=== PATIENT | male | born 1975 | race Caucasian/White ===

== ENCOUNTER 2017-07-10 19:25 | Emergency (ER) | payer SELFPAY ==
[~2017-07-10] VITALS: Ht 175.3 cm; Wt 68.2 kg
[2017-07-10 19:33] VITALS: TEMP 98.9
[2017-07-10 20:18] LABS: BASO # 0.1 (0.0-0.2); BASO % 0.7 % (0.0-2.0); EOS # 0.1 (0.0-0.7); EOS % 1.2 % (0-4.0); GRAN # 5.3 (1.4-6.5); GRAN % 59.5 % (42.2-75.2); HEMATOCRIT 44.8 % (42.0-52.0); HEMOGLOBIN 15.4 g/dl (13.5-18.0); LYMPH # 2.5 (1.2-3.4); LYMPH % 28.5 % (20.0-51.0); MEAN CELL VOLUME 91 fl (80.0-100.0); MEAN CORPUSCULAR HEMOGLOBIN 31 pg (27.0-31.0); MEAN CORPUSCULAR HGB CONC 34 g/dl (33.0-37.0); MEAN PLATELET VOLUME 9.7 fl (7.4-10.4); MONO # 0.9 (0.1-0.6); MONO % 9.6 % (1.7-9.3); PLATELET COUNT 260 K/mm3 (130-400); RED BLOOD COUNT 4.94 M/mm3 (4.20-5.60); REDCELL DISTRIBUTION WIDTH-CV 12.8 % (11.5-14.5); WHITE BLOOD COUNT 8.9 K/mm3 (4.8-10.8)
[2017-07-10 20:30] LABS: ALANINE AMINOTRANSFERASE 35 U/L (21-72); ALBUMIN 4.6 gm/dL (3.5-5.0); ALKALINE PHOSPHATASE 64 U/L (50-136); ANION GAP 10 mmol/L (7-16); BILIRUBIN,TOTAL 0.7 mg/dL (0.0-1.0); BLOOD UREA NITROGEN 15 mg/dL (9-20); CALCIUM 9.5 mg/dL (8.4-10.2); CARBON DIOXIDE 26 mmol/L (22-30); CHLORIDE 106 mmol/L (98-107); CREATININE, serum 0.89 mg/dL (0.66-1.25); GLUCOSE 94 mg/dL (74-106); POTASSIUM 3.8 mmol/L (3.4-5.0); SODIUM 142 mmol/L (137-145); TOTAL PROTEIN 7.7 gm/dL (6.4-8.2)
[2017-07-10 20:32] LABS: ACETAMINOPHEN < 10 ug/mL (10-30); SALICYLATE < 1.0 mg/dL
[2017-07-10 20:52] LABS: AMPHETAMINE URINE NEGATIVE; BARBITURATES URINE NEGATIVE; BENZODIAZEPINES URINE NEGATIVE; BUPRENORPHINE URINE NEGATIVE; METHADONE URINE NEGATIVE; OPIATES URINE NEGATIVE; OXYCODONE URINE NEGATIVE; PHENCYCLIDINE URINE NEGATIVE; PROPOXYPHENE URINE NEGATIVE; THC CANNABINOIDS URINE NEGATIVE
[2017-07-10 23:14] VITALS: BP 132/69; PULSE 770
== END 2017-07-10 23:15 | disposition home or self-care (01) ==
LOC: COL.ER 19:25
PROVIDERS: Physician Assistant
DX: R45.1 Restlessness and agitation (principal); F41.9 Anxiety disorder, unspecified; F63.81 Intermittent explosive disorder; F17.210 Nicotine dependence, cigarettes, uncomplicated

== ENCOUNTER 2022-03-14 17:12 | Emergency (ER) | payer MEDICAID ==
[~2022-03-14] VITALS: Ht 175.3 cm; Wt 70.5 kg
[~2022-03-14 17:12] MED LIST: DESYREL 50MG50 MG PO; SEROQUEL300 MG PO
[2022-03-14 17:20] VITALS: TEMP 99.1
[2022-03-14] MEDS ORDERED: MOBIC15 MG PO (19:23)
[2022-03-14 19:43] VITALS: BP 118/70; PULSE 96
== END 2022-03-14 19:35 | disposition home or self-care (01) ==
LOC: COL.ER 17:12
DX: M25.531 Pain in right wrist (principal); M79.672 Pain in left foot; M25.561 Pain in right knee; M54.6 Pain in thoracic spine; M19.90 Unspecified osteoarthritis, unspecified site; F17.210 Nicotine dependence, cigarettes, uncomplicated; Z28.310 Unvaccinated for COVID-19; V13.2XXA Unspecified pedal cyclist injured in collision with car, pick-up truck or van in nontraffic accident, initial encounter